=== PATIENT | female | born 1980 | race Caucasian/White ===

== ENCOUNTER 2023-09-26 08:46 | Day surgery (SDC) | payer OTHER ==
[2023-09-22 09:42] VITALS: BMI 36.6
[2023-09-26] MEDS ORDERED: Bupivacaine/Epinephrine 0.25% 30 ML VIAL ONE (09:23)
[2023-09-26] MEDS ORDERED: Lidocaine 1% PF 5 ML VIAL ONE (09:59)
[2023-09-26] MEDS ORDERED: Dexamethasone 4 mg/ml Vial ONE (09:59)
[2023-09-26] MEDS ORDERED: fentaNYL 50 mcg/mL 1 mL Vial ONE ×3 (09:59→12:08)
[2023-09-26] MEDS ORDERED: Rocuronium Bromide 10 MG/ML (10ML VIAL) ONE (09:59)
[2023-09-26] MEDS ORDERED: Ondansetron PF 4 MG/2 ML Vial ONE (09:59)
[2023-09-26] MEDS ORDERED: PROPOFOL 20 ML ONE (09:59)
[2023-09-26] MEDS ORDERED: Indocyanine Green 25 MG/10 ML VIAL ONE (10:18)
[2023-09-26] MEDS ORDERED: Dexmedetomidine 200 MCG/2 ML VIAL ONE (10:22)
[2023-09-26] MEDS ORDERED: Midazolam HCl 2 mg/2 ml Vial ONE ×2 (10:29→10:35)
[2023-09-26] MEDS ORDERED: LevoFLOXacin D5W 500 mg (100 mL) BAG ONE (10:31)
[2023-09-26] MEDS ORDERED: SUGAMMADEX SODIUM 200 MG/2 ML VIAL ONE (11:14)
[2023-09-26] MEDS ORDERED: Acetaminophen 500 MG TAB ONE (12:25)
[2023-09-26] MEDS ORDERED: Ketorolac Tromethamine 30 MG (1 mL) VIAL ONE (13:07)
[2023-09-26] MEDS ORDERED: LevoFLOXacin 500 mg/D5W 500 MG in Premix 1 BAG IVPB SCH (13:15)
[2023-09-26] MEDS ORDERED: Ketorolac Tromethamine 30 MG (1 mL) VIAL IVP SCH (13:15)
== END 2023-09-26 14:15 | disposition home or self-care (01) ==
LOC: CSHSDC 08:46
PROVIDERS: ATTEND Surgery
PROC: 0FT44ZZ Resection of Gallbladder, Percutaneous Endoscopic Approach (ICD-10-PCS; principal; 2023-09-26)
PROC: BF50200 Other Imaging of Bile Ducts using Fluorescing Agent, Indocyanine Green Dye, Intraoperative (ICD-10-PCS; principal; 2023-09-26)
DX: K80.10 Calculus of gallbladder with chronic cholecystitis without obstruction (principal); E03.9 Hypothyroidism, unspecified; Z79.890 Hormone replacement therapy; Z79.899 Other long term (current) drug therapy; Z88.0 Allergy status to penicillin
CPT/HCPCS: 88304; C1889; J1100; J1885; J1956; J2250; J2405; J2704; J3010